=== PATIENT | female | born 1970 | race Caucasian/White ===

== ENCOUNTER 2021-10-19 01:01 | Emergency (ER) | payer MEDICAID ==
[~2021-10-19] VITALS: Ht 170.2 cm; Wt 72.7 kg
[~2021-10-19 01:01] MED LIST: CHOL100046 PO; CYAN-51 PO; FLUO20CA39 PO; HYDR-4353 PO; LORA2TAB PO
[2021-10-19 01:30] VITALS: BP 180/92
--- NOTE | 2021-10-19 01:32 | NUR ---
THERE IS NOTHING WRONG WITH THIS PATIENT. UPON PHYSICIAN ASSESSMENT, PT WAS MEDICALLY CLEARED AND DISCHARGE PAPERS WERE FILLED OUT.
== END 2021-10-19 02:38 | disposition home or self-care (01) ==
LOC: ER 01:01
DX: M54.9 Dorsalgia, unspecified (principal); F41.9 Anxiety disorder, unspecified; F32.9 Major depressive disorder, single episode, unspecified; Z88.0 Allergy status to penicillin; Z79.899 Other long term (current) drug therapy; Z56.0 Unemployment, unspecified; W18.30XA Fall on same level, unspecified, initial encounter; Y93.89 Activity, other specified; Y92.89 Other specified places as the place of occurrence of the external cause; Y99.8 Other external cause status
CPT/HCPCS: 99284

== ENCOUNTER 2022-06-29 17:38 | Emergency (ER) | payer MEDICAID ==
[~2022-06-29] VITALS: Ht 175.3 cm; Wt 77.0 kg
[2022-06-29 17:56] VITALS: BP 141/91
[2022-06-29] MEDS ORDERED: HYDROcodone/acetaminophen 10/325mg tab PO ONE (19:15)
== END 2022-06-29 19:47 | disposition home or self-care (01) ==
LOC: ER 17:39
DX: S60.221A Contusion of right hand, initial encounter (principal); F41.9 Anxiety disorder, unspecified; F17.200 Nicotine dependence, unspecified, uncomplicated; Z56.0 Unemployment, unspecified; Y04.0XXA Assault by unarmed brawl or fight, initial encounter; Y93.89 Activity, other specified; Y92.89 Other specified places as the place of occurrence of the external cause; Y99.8 Other external cause status
CPT/HCPCS: 99283

== ENCOUNTER 2024-03-27 11:28 | Emergency (ER) | payer MEDICAID ==
[~2024-03-27] VITALS: Ht 170.2 cm; Wt 89.2 kg
[~2024-03-27 11:28] MED LIST changes: +CYAN-104 PO; -CYAN-51 PO
[2024-03-27 11:31] VITALS: BP 160/85; PULSE 68; RESP 18; O2SAT 98
[2024-03-27] MEDS ORDERED: HYDR-3965 PO (14:19)
[2024-03-27] MEDS ORDERED: LEVO-65 PO (14:19)
[2024-03-27 15:09] VITALS: TEMP 97.8
== END 2024-03-27 15:15 | disposition home or self-care (01) ==
LOC: ER 11:30
DX: S02.40CA Maxillary fracture, right side, initial encounter for closed fracture (principal); S02.2XXA Fracture of nasal bones, initial encounter for closed fracture; S62.602A Fracture of unspecified phalanx of right middle finger, initial encounter for closed fracture; F41.9 Anxiety disorder, unspecified; F32.A Depression, unspecified; Z88.0 Allergy status to penicillin; Z79.899 Other long term (current) drug therapy; Z79.2 Long term (current) use of antibiotics; Z90.49 Acquired absence of other specified parts of digestive tract; Z98.890 Other specified postprocedural states; Z90.710 Acquired absence of both cervix and uterus; Y08.89XA Assault by other specified means, initial encounter; Y93.89 Activity, other specified; Y92.89 Other specified places as the place of occurrence of the external cause; Y99.8 Other external cause status
CPT/HCPCS: 70450; 70486; 73130; 99284